=== PATIENT | male | born 2000 | race Two or more races ===

== ENCOUNTER 2022-01-22 21:24 | Emergency (ER) | payer OTHER, SELFPAY ==
[2022-01-22 22:46] VITALS: BP 113/72; PULSE 62; RESP 18; TEMP 36.7; O2SAT 99; BMI 31.1
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
== END 2022-01-23 00:48 | disposition home or self-care (01) ==
PROVIDERS: Emergency Provider Emergency Medicine Emergency Medical Services
DX: M54.50 Low back pain, unspecified (principal); M54.2 Cervicalgia
CPT/HCPCS: 99282

== ENCOUNTER 2025-02-27 18:52 | Emergency (ER) | payer BC, SELFPAY ==
--- NOTE | ~2025-02-27 | XR_ITS ---
CLINICAL HISTORY: laceration to 4th finger, crush injury, r o fx 3 view left hand Comparison: None provided Indication: Laceration to 4th finger, crush injury Findings: Three views of the left hand demonstrate soft tissue swelling of the distal 4th digit. There is a comminuted distal tuft fracture with displacement of the medial distal tuft fracture . There is a soft tissue laceration or involvement of the nailbed. This constitutes an open fracture. Proximal and distal interphalangeal articulations are normal. Remainder of the phalanges are normal. Metacarpal phalangeal articulations are normally aligned. No subluxation. Carpal bones are normal. Included distal radius and ulna are normal. Ulnar styloid is intact. No erosions. No radiopaque foreign body. IMPRESSION: 1. Displaced and comminuted distal 4th phalanx tuft fracture with associated soft tissue laceration, constituting an open fracture. This document has been electronically signed by: Nithin Yarbrough III, MD PHD on 02/27/2025 21:23:26
--- NOTE | 2025-02-27 19:19 | ED.UPPEXIN ---
HPI - Extremity Injury (Upper) General Chief Complaint: Extremity Injury, Upper Stated Complaint: left finger inj Time Seen by Provider: 02/27/25 21:38 Source: patient Limitations: no limitations History of Present Illness HPI narrative: 24-year-old male presents for evaluation of left 4th digit injury that occurred on February 26 at approximately 10:00 a.m. 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 Patient states when he was in the process of unloading one, he placed it next to another 1 and accidentally crushed his finger between it. Patient states he washed it off at that time and bandaged it. He has been keeping it covered and elevated since the incident. He was encouraged to have it further evaluated today and therefore presents to the emergency department. He is right-hand dominant. Denies any paresthesias or paralysis. Unknown last tetanus. Related Data Previous Rx's ?Medication ?Instructions ?Recorded doxycycline monohydrate 100 mg 100 mg PO BID #20 caps 02/27/25 capsule Allergies Allergy/AdvReac Type Severity Reaction Status Date / Time ibuprofen Allergy Unknown Unknown Verified 02/27/25 19:21 Review of Systems Musculoskeletal: Comments: Pain left 4th digit PMFSH Social History Social History Advance Directives: No Advance Directives Information Provided: No Physical Exam Vital Signs: Vital Signs: Last Vital Signs Temp 97.9 F 02/27/25 19:20 Pulse 72 02/27/25 19:20 Resp 18 02/27/25 19:20 BP 121/56 L 02/27/25 19:20 Pulse Ox 98 02/27/25 19:20 O2 Del Method Room Air 02/27/25 19:20 BMI result Body Mass Index 29.7 Const: General: alert and awake Extrem: Other: Full range of motion of all digits except left 4th secondary to pain. The distal aspect of the left 4th digit has some separation at the distal aspect of the nail and distal fat pad. There is skin breakdown to this area that extends just under the nail. There was no active bleeding. There was no subungual hematoma. Capillary refills less than 2 seconds. Radial pulses are +2 and equal bilaterally. Course Course Course Narrative: Yennifer Long [employer] 02/28 1926 This is a rapid medical exam. Defer additional HPI, ROS and PE to primary provider. 24-year-old male who is healthy who is right-hand dominant presents the ER with complaints of crush injury to the left hand 4th digit while working. This is a laceration present that extends underneath the nail bed. Will need x-rays, tetanus will need to be updated VSS Reevaluation(s) Reevaluation #1: 10:15 p.m. tetanus shot updated. First dose of antibiotics given. The wound was cleansed, bandaged and finger splint applied. Reviewed all discharge instructions, including orthopedic referral. Patient expresses understanding of all discharge instructions and has no further questions at this time Medical Decision Making Medical Decision Making MDM Narrative: 24-year-old male with crush injury to the left 4th digit, x-ray with distal fracture. No indication for suturing at this time. Wound is approximately 36 hours from being open. Patient's tetanus will be updated. Clean wound and splint. Patient will follow up with ortho. Discussed with Dr. Flores who agrees with plan Differential Diagnosis Differential Diagnoses: The differential diagnosis associated with the presentation includes Fracture Dislocation Contusion Sprain Radiology Impression Discussion of test interpretation with radiology: I have reviewed the radiologist's reading. Radiologist Impression: [address] [address] XRay Report Signed Patient: Ervin Shah MR#: [id number] : 2000 Acct:[id number] Age/Sex: 24 / M ADM Date: 02/27/25 Loc: .ED Attending Dr: Ordering Physician: Yennifer Long NP Date of Service: 02/27/25 Procedure(s): XR hand LT min 3V Accession Number(s): [id number] cc: Yennifer Long NP; Physician,None ~ CLINICAL HISTORY: laceration to 4th finger, crush injury, r o fx 3 view left hand Comparison: None provided Indication: Laceration to 4th finger, crush injury Findings: Three views of the left hand demonstrate soft tissue swelling of the distal 4th digit. There is a comminuted distal tuft fracture with displacement of the medial distal tuft fracture . There is a soft tissue laceration or involvement of the nailbed. This constitutes an open fracture. Proximal and distal interphalangeal articulations are normal. Remainder of the phalanges are normal. Metacarpal phalangeal articulations are normally aligned. No subluxation. Carpal bones are normal. Included distal radius and ulna are normal. Ulnar styloid is intact. No erosions. No radiopaque foreign body. IMPRESSION: 1. Displaced and comminuted distal 4th phalanx tuft fracture with associated soft tissue laceration, constituting an open fracture. This document has been electronically signed by: Nithin Yarbrough III, MD PHD on 02/27/2025 21:23:26 Dictated By: Nithin Yarbrough MD Signed By: <Electronically signed by Nithin Yarbrough MD in OV> 02/27/252122 DD/ 22 Prescription Management I considered prescription management with: Pain Medication and Antibiotic Procedures Orthopedic Splinting/Casting Injury #1: Side: left Upper Extremity Injury Location: finger (4th digit) Upper Extremity Immobilizer: finger (other) Discharge Plan Discharge Clinical Impression: Fracture, finger, distal phalanx, open Qualifiers: Encounter type: initial encounter Finger: ring finger Fracture alignment: displaced Laterality: left Qualified Code(s): S62.635B - Displaced fracture of distal phalanx of left ring finger, initial encounter for open fracture Patient Disposition: Home, Self-Care Instructions: Finger Fracture (ED) Additional Instructions: Your tetanus shot was updated today. Keep your finger and hands clean and dry. Dressing changes twice daily. Remove dressing, gently cleaned with warm water and antibacterial soap. Pat dry. Apply antibiotic ointment such as bacitracin or Neosporin to the finger. Reapply bandage and splint. Doxycycline as directed. Finish all antibiotics. Rest. Ice. Elevate. Tylenol for pain. Follow up with orthopedic referral. Watch for worsening of symptoms, severe pain, redness, streaking or any other concern return immediately to the emergency department. Follow-up with your primary care provider. Call this week to schedule a follow-up appointment. Return to the emergency department if you have any worsening of symptoms, or any concerns. Get well soon! Prescriptions: New doxycycline monohydrate 100 mg capsule 100 mg PO BID Qty: 20 0RF Referrals: Magno Matias MD [Physician, Orthopedics] Referral Note: Open left 4th distal tuft fx Stand Alone Forms: Work/School Release Print Language: Macedonian
[2025-02-27 19:20] VITALS: BP 121/56; PULSE 72; RESP 18; TEMP 36.6; O2SAT 98; BMI 29.7
[2025-02-27 22:24] VITALS: BP 122/60; PULSE 76; RESP 18; TEMP 36.6; O2SAT 98
[2025-02-27] MEDS: Diphth,Pertus(ACell),Tet Adult 0.5 ML SYRINGE IM (22:53)
[2025-02-27 22:57] VITALS: BP 122/60; PULSE 76; RESP 18; TEMP 36.6; O2SAT 98
== END 2025-02-27 22:58 | disposition home or self-care (01) ==
PROVIDERS: Emergency Provider Emergency Medicine
DX: S62.635B Displaced fracture of distal phalanx of left ring finger, initial encounter for open fracture (principal); W23.1XXA Caught, crushed, jammed, or pinched between stationary objects, initial encounter; Y93.9 Activity, unspecified; Y92.9 Unspecified place or not applicable; Y99.0 Civilian activity done for income or pay
CPT/HCPCS: 73130; 90471; 90715; 99282; 99284

== ENCOUNTER → 2025-02-27 19:23 | Outpatient (BNV) | payer BC, SELFPAY | PROVIDERS: Visit Provider Radiology Diagnostic Radiology | DX: S62.631B Displaced fracture of distal phalanx of left index finger, initial encounter for open fracture (principal) | CPT/HCPCS: 73130 ==